=== PATIENT | male | born 1990 | race Caucasian/White ===

== ENCOUNTER 2021-04-12 18:54 | Emergency (ER) | payer MEDICARE ==
[~2021-04-12] VITALS: Ht 180.3 cm; Wt 81.6 kg
[2021-04-12] MEDS ORDERED: ALBUTEROL/IPRATROPIUM 3 ML NEB NEB ONE (19:00)
== END 2021-04-12 19:30 | disposition home or self-care (01) ==
LOC: ER 19:00
DX: J45.909 Unspecified asthma, uncomplicated (principal); R06.02 Shortness of breath; L30.9 Dermatitis, unspecified; H40.9 Unspecified glaucoma
CPT/HCPCS: 94640; 99282